=== PATIENT | male | born 1940 | race Hispanic/Latino ===

== ENCOUNTER → 2024-09-12 | Outpatient (REF) | payer OTHER | LOC: US 10:28 | PROVIDERS: ATTEND Internal Medicine Cardiovascular Disease | DX: I10 Essential (primary) hypertension (principal) | CPT/HCPCS: 76770 ==

== ENCOUNTER → 2024-10-09 | Outpatient (REF) | payer OTHER ==
[~2024-10-09] MED LIST: IOPAMIDOL 370 MG/ML 100 ML INFUS..BTL INJ ONE
[2024-10-09 10:39] LABS: CREATININE, SERUM 1.14 mg/dL (0.72-1.25)
== END ==
LOC: CT 09:42
PROVIDERS: ATTEND Internal Medicine
DX: N28.9 Disorder of kidney and ureter, unspecified (principal)
CPT/HCPCS: 36415; 74170; 82565; 84520; Q9967

== ENCOUNTER → 2024-12-31 | Outpatient (REF) | payer OTHER ==
[2024-12-31 11:31] LABS: EST GLOMERULAR FILTRATION RATE 74.0 ML/MIN (>=60)
== END ==
LOC: CT 09:53
PROVIDERS: ATTEND Internal Medicine Critical Care Medicine
DX: R91.1 Solitary pulmonary nodule (principal); J98.4 Other disorders of lung
CPT/HCPCS: 36415; 71260; 82565; 84520; Q9967